=== PATIENT | male | born 2000 | race Native Hawaiian/Other Pacific Islander ===

== ENCOUNTER 2020-04-23 17:39 | Emergency (ER) | payer OTHER ==
[~2020-04-23] VITALS: Ht 182.9 cm; Wt 95.3 kg
[2020-04-23 19:34] VITALS: BP 142/73; TEMP 99.7
== END 2020-04-23 19:41 | disposition home or self-care (01) ==
LOC: ED 17:39
DX: J20.9 Acute bronchitis, unspecified (principal); J02.9 Acute pharyngitis, unspecified; Z20.828 Contact with and (suspected) exposure to other viral communicable diseases; F17.210 Nicotine dependence, cigarettes, uncomplicated
CPT/HCPCS: 87502; 87635; 87651; 99283; U0003